=== PATIENT | female | born 1960 | race Caucasian/White ===

== ENCOUNTER 2016-05-18 08:45 | Emergency (ER) | payer MEDICARE, OTHER ==
--- NOTE | ~2016-05-18 | CT98 ---
[facility] A Service of [facility] RADIOLOGY TEXT RESULTS PATIENT: AMBER HUNTER LOCATION: SED : 62 UNIT #: [id number] AGE: [address]: Georgia Wyatt MD SEX: F ORDER DR: [id number] [address] [id number] MR#: [id number] #: [id number] NAME: AMBER HUNTER. : 1960 SEX: F STUDY DATE/TIME: 05/18/2016 15:16 UNIT: SED ROOM: STUDY DESCRIPTION: CT Lumbar Spine Wo Cont Attending Physician: Georgia Wyatt M.D. Referring Physician: Georgia Wyatt M.D. Ordering Physician: Georgia Wyatt M.D. Primary Care Physician: Victorino Nunez M.D. MEDICAL IMAGING REPORT This report is preliminary unless electronic signature is present. EXAM CT of the lumbar spine 05/18/2016 HISTORY Low back pain radiating down through the right buttock to the right leg for 5 days. TECHNIQUE Axial imaging of the lumbar spine was performed with multiplanar reconstructions. This CT exam was performed with one or more of the following radiation dose reduction techniques: automatic exposure control, adjustment of mA and/or kV according to patient size, and iterative reconstruction. FINDINGS Spinal alignment is normal. The T12-L1 level, L1-L2 level, and L2-3 levels are normal. At L3-4 there is a vacuum disc with minimal posterior disc bulging and bilateral facet hypertrophy. There is no significant foraminal stenosis. At L4-5 there is facet arthropathy. There is no significant focal disc bulge or herniation. At L5-S1 there is a central to right paracentral disc protrusion extending posteriorly. There is a disc fragment within the canal on the right. CONCLUSION Degenerative changes of the disc with mild disc bulging at L3-4. At L5-S1 there is a large central to right paracentral disc protrusion with a disc fragment extending posterior to the S1 level within the canal on the right. This likely accounts with the patient's clinical symptomatology. Dictated by... Huey Lindquist M.D. [facility] A Service of [facility] RADIOLOGY TEXT RESULTS PATIENT: AMBER HUNTER [place] [facility] [place] 62 [place]IT #: [id number] AGE: [address]: Georgia Wyatt MD SEX: F ORDER DR: THIS IS AN ELECTRONICALLY VERIFIED REPORT Huey Lindquist M.D. at 05/19/2016 10:56 AM AGUILA/barbara TD: 05/18/2016 18:41 JOB #: [id number] MEDICAL IMAGING REPORT Page 1 of 1
[~2016-05-18 08:45] MED LIST: CARAFATE PO; FLEXERIL10 MG PO; HYDROCODONE-APA1 T30 PO; MEDROL4 MG/DOSE- PO; MOTRIN600 M2 PO; MS CONTIN PO; NEURONTIN PO; NORCO1 TAB 10/3 PO; ULTRAM PO; ZOLOFT PO
[2016-06-04] MEDS ORDERED: ZANAFLEX (18:28)
[2016-06-04] MEDS ORDERED: VICODIN ES 7.51 EAC1 (18:29)
[2016-06-04] MEDS ORDERED: CLEOCIN (18:29)
== END 2016-05-18 16:12 | disposition home or self-care (01) ==
LOC: SED 08:45
DX: Z53.21 Procedure and treatment not carried out due to patient leaving prior to being seen by health care provider (principal)
CPT/HCPCS: 72131; J1100; J1170; J1200; J1885

== ENCOUNTER 2016-06-04 18:54 | Emergency (ER) | payer MEDICARE, OTHER ==
[~2016-06-04 18:54] MED LIST changes: +CLEOCIN; +VICODIN ES 7.51 EAC1; +ZANAFLEX
== END 2016-06-04 21:30 | disposition home or self-care (01) ==
LOC: SED 18:54
DX: M54.41 Lumbago with sciatica, right side (principal); Z91.041 Radiographic dye allergy status
CPT/HCPCS: 96372; 96374; 99284; J1170; J3360